=== PATIENT | female | born 1975 | race Caucasian/White ===

== ENCOUNTER 2024-07-02 13:28 | Outpatient (CLI) | payer MEDICAID | END 2024-07-02 23:59 | disposition home or self-care (01) | LOC: MRI02 13:28 | PROVIDERS: ATTEND Family Medicine | DX: M75.51 Bursitis of right shoulder (principal); M75.41 Impingement syndrome of right shoulder; M25.411 Effusion, right shoulder; M25.511 Pain in right shoulder | CPT/HCPCS: 73221 ==